=== PATIENT | male | born 1940 | race Caucasian/White ===

== ENCOUNTER 2016-09-28 14:15 | Outpatient (RCR) | payer OTHER, MEDICARE, MEDICAID ==
[~2016-09-28 14:15] MED LIST: ASPIRIN E.C. 8181 MG PO; CEFTIN500 MG PO; CLEOCIN HC150 MG/CAP PO; COLACE 100100 MG/CAP PO; DOLOBID500 MG PO; DOXYCYCLINE 10100 MG PO; FLOMAX 0.40.4 MG/CAP PO; GLUCOPHAGE XR500 M1 PO; IPRATROPIUM BROM3 M1 IH; K-DUR 10 MEQ T10 MEQ PO; LASIX 40MG TABL40 MG PO; LEVAQUIN 5500 MG/TA1 PO; LEXAPRO 10MG10 MG PO; LIPITOR 10MG10 MG PO; MIRALAX PA17 GM/Dose PO; MULTIPLE VITAMI1 CAP PO; MYRBETR50MG PO; NASAREL0.025 MG/1 NAS; NASAREL0.025 MG/1 NS; NORCO 325 MG-51 TAB PO; NYSTATIN100000 U/G TOP; OSCAL 500 TAB500 MG PO; PLAVIX 75MG TAB75 MG PO; PREDNISONE10 MG PO; SINEMET 25/101 UDTAB PO; SINEMET-25/251 UDTAB PO; TYLENOL 325MG325 MG PO; TYLENOL W/COD1 UDTAB PO; ZAROXOLYN5 MG PO; ZITHROMAX500 M2 PO; ZOLOFT 25MG25 MG PO; ZYRTEC 10MG10 MG PO
== END 2016-10-29 12:25 | disposition home or self-care (01) ==
LOC: WSPT 14:15
DX: I87.8 Other specified disorders of veins (principal); M79.89 Other specified soft tissue disorders
CPT/HCPCS: G8981-GP; G8982-GP; G8983-GP

== ENCOUNTER → 2016-10-03 | Outpatient (CLI) | payer MEDICARE, OTHER, MEDICAID | LOC: WCC 10:30 | DX: L03.115 Cellulitis of right lower limb (principal); L03.116 Cellulitis of left lower limb; I87.8 Other specified disorders of veins | CPT/HCPCS: 13919; 13973; 27517; A6199; A6207; G0463 ==

== ENCOUNTER → 2016-10-10 | Outpatient (CLI) | payer MEDICARE, OTHER, MEDICAID | LOC: WCC 10-09 15:32 | DX: I87.8 Other specified disorders of veins (principal); L97.919 Non-pressure chronic ulcer of unspecified part of right lower leg with unspecified severity; L97.929 Non-pressure chronic ulcer of unspecified part of left lower leg with unspecified severity; E66.01 Morbid (severe) obesity due to excess calories | CPT/HCPCS: 13919; 18806; A6197; G0463 ==

== ENCOUNTER → 2016-10-12 | Outpatient (CLI) | payer MEDICARE, OTHER, MEDICAID ==
[2016-10-12 23:13] LABS: CALCIUM 9.2 mg/dL (8.4-10.2); CREATININE, serum 0.92 mg/dL (0.66-1.25); POTASSIUM 4.7 mmol/L (3.4-5.0)
== END ==
LOC: EDSTATUS 14:40 → ZLAB.STJ 23:01
PROVIDERS: Internal Medicine
DX: Z01.89 Encounter for other specified special examinations (principal)

== ENCOUNTER → 2016-10-17 | Outpatient (CLI) | payer MEDICARE, OTHER, MEDICAID | LOC: WCC 09:23 | DX: I87.8 Other specified disorders of veins (principal); L97.529 Non-pressure chronic ulcer of other part of left foot with unspecified severity; L97.519 Non-pressure chronic ulcer of other part of right foot with unspecified severity; E66.01 Morbid (severe) obesity due to excess calories | CPT/HCPCS: 27510; A6197; G0463 ==

== ENCOUNTER → 2016-10-24 | Outpatient (CLI) | payer MEDICARE, OTHER, MEDICAID | LOC: WCC 08:32 | DX: R60.9 Edema, unspecified (principal); B37.2 Candidiasis of skin and nail; I87.8 Other specified disorders of veins | CPT/HCPCS: 27510; A6197; G0463 ==

== ENCOUNTER → 2016-10-24 | Outpatient (CLI) | payer MEDICARE, OTHER, MEDICAID ==
[2016-10-24 14:56] LABS: CALCIUM 9.3 mg/dL (8.4-10.2); CREATININE, serum 0.93 mg/dL (0.66-1.25); POTASSIUM 4.9 mmol/L (3.4-5.0)
== END ==
LOC: ZLAB.STJ 13:56 → EDSTATUS 14:47
PROVIDERS: Internal Medicine
DX: Z01.89 Encounter for other specified special examinations (principal)

== ENCOUNTER → 2016-10-31 | Outpatient (CLI) | payer MEDICARE, OTHER, MEDICAID | LOC: WCC 09:55 | DX: I87.8 Other specified disorders of veins (principal); R60.0 Localized edema; B37.2 Candidiasis of skin and nail | CPT/HCPCS: G0463 ==

== ENCOUNTER 2016-12-14 23:09 | Emergency (ER) | payer MEDICARE, OTHER, MEDICAID ==
[~2016-12-14] VITALS: Ht 180.3 cm; Wt 113.6 kg
[2016-12-14 23:11] VITALS: TEMP 98.6
[2016-12-15 02:15] VITALS: BP 148/90; PULSE 80
== END 2016-12-15 02:00 | disposition home or self-care (01) ==
LOC: COL.ER 23:09
DX: M23.8X1 Other internal derangements of right knee (principal); M25.061 Hemarthrosis, right knee; W01.198A Fall on same level from slipping, tripping and stumbling with subsequent striking against other object, initial encounter
CPT/HCPCS: J1885

== ENCOUNTER → 2016-12-31 | Outpatient (CLI) | payer MEDICARE, OTHER, MEDICAID ==
[2016-12-31 11:59] LABS: CALCIUM 9.1 mg/dL (8.4-10.2); CREATININE, serum 0.84 mg/dL (0.66-1.25); POTASSIUM 4.7 mmol/L (3.4-5.0)
== END ==
LOC: ZLAB.STJ 10:13
PROVIDERS: Family Medicine
DX: I10 Essential (primary) hypertension (principal)

== ENCOUNTER → 2017-01-30 | Outpatient (CLI) | payer MEDICARE, OTHER, MEDICAID | LOC: ZLAB.STJ 10:30 → ZCOL.LAB 10:30 | DX: E11.9 Type 2 diabetes mellitus without complications (principal); Z02.89 Encounter for other administrative examinations ==

== ENCOUNTER → 2017-02-28 | Outpatient (CLI) | payer MEDICARE, OTHER, MEDICAID ==
[2017-02-28 14:12] LABS: BASO # 0.1 (0.0-0.2); BASO % 0.6 % (0.0-2.0); EOS # 0.6 (0.0-0.7); EOS % 8.1 % (0-4.0); GRAN # 4.6 (1.4-6.5); GRAN % 59.2 % (42.2-75.2); HEMOGLOBIN 13.6 g/dl (13.5-18.0); LYMPH # 1.9 (1.2-3.4); LYMPH % 24.4 % (20.0-51.0); MEAN CELL VOLUME 94 fl (80.0-100.0); MEAN CORPUSCULAR HEMOGLOBIN 30 pg (27.0-31.0); MEAN CORPUSCULAR HGB CONC 32 g/dl (33.0-37.0); MEAN PLATELET VOLUME 10.7 fl (7.4-10.4); MONO # 0.6 (0.1-0.6); MONO % 7.2 % (1.7-9.3); PLATELET COUNT 166 K/mm3 (130-400); RED BLOOD COUNT 4.49 M/mm3 (4.20-5.60); REDCELL DISTRIBUTION WIDTH-CV 13.7 % (11.5-14.5); WHITE BLOOD COUNT 7.8 K/mm3 (4.8-10.8)
== END ==
LOC: ZLAB.STJ 13:26
PROVIDERS: Nurse Practitioner
DX: E11.9 Type 2 diabetes mellitus without complications (principal); D64.9 Anemia, unspecified

== ENCOUNTER → 2017-03-06 | Outpatient (CLI) | payer MEDICARE, OTHER, MEDICAID ==
[2017-03-06 13:06] LABS: CALCIUM 8.9 mg/dL (8.4-10.2); POTASSIUM 4.8 mmol/L (3.4-5.0)
== END ==
LOC: ZLAB.STJ 11:30
PROVIDERS: Family Medicine
DX: M62.81 Muscle weakness (generalized) (principal)

== ENCOUNTER → 2017-08-15 | Outpatient (CLI) | payer MEDICARE, OTHER, MEDICAID ==
[2017-08-15 10:02] LABS: BASO % 0.5 % (0.0-2.0); EOS # 0.7 (0.0-0.7); EOS % 8.5 % (0-4.0); GRAN # 4.8 (1.4-6.5); GRAN % 61.7 % (42.2-75.2); HEMOGLOBIN 13.5 g/dl (13.5-18.0); LYMPH # 1.7 (1.2-3.4); LYMPH % 21.4 % (20.0-51.0); MEAN CELL VOLUME 96 fl (80.0-100.0); MEAN CORPUSCULAR HEMOGLOBIN 32 pg (27.0-31.0); MEAN CORPUSCULAR HGB CONC 33 g/dl (33.0-37.0); MEAN PLATELET VOLUME 10.8 fl (7.4-10.4); MONO # 0.6 (0.1-0.6); MONO % 7.4 % (1.7-9.3); PLATELET COUNT 156 K/mm3 (130-400); RED BLOOD COUNT 4.29 M/mm3 (4.20-5.60); WHITE BLOOD COUNT 7.7 K/mm3 (4.8-10.8)
[2017-08-15 10:05] LABS: ALBUMIN 3.7 gm/dL (3.5-5.0); BILIRUBIN,TOTAL 0.6 mg/dL (0.0-1.0); CALCIUM 8.8 mg/dL (8.4-10.2); CHOLESTEROL RISK RATIO 4.1; CREATININE, serum 0.92 mg/dL (0.66-1.25); POTASSIUM 4.8 mmol/L (3.4-5.0); TOTAL PROTEIN 6.2 gm/dL (6.4-8.2)
== END ==
LOC: ZLAB.STJ 09:44
PROVIDERS: Internal Medicine
DX: E11.9 Type 2 diabetes mellitus without complications (principal); E78.5 Hyperlipidemia, unspecified; E87.8 Other disorders of electrolyte and fluid balance, not elsewhere classified

== ENCOUNTER → 2017-12-06 | Outpatient (CLI) | payer MEDICARE, OTHER, MEDICAID ==
[2017-12-06 10:51] LABS: CALCIUM 8.8 mg/dL (8.4-10.2); CREATININE, serum 0.98 mg/dL (0.66-1.25); POTASSIUM 4.4 mmol/L (3.4-5.0)
== END ==
LOC: ZLAB.STJ 10:30
PROVIDERS: Internal Medicine
DX: I10 Essential (primary) hypertension (principal)

== ENCOUNTER → 2018-03-11 | Outpatient (REF) ==
[2018-03-11 14:25] LABS: CALCIUM 8.8 mg/dL (8.4-10.2)
[2018-03-11 14:37] LABS: POTASSIUM 5.8 mmol/L (3.4-5.0)
== END ==
LOC: ZLAB.STJ 14:03
PROVIDERS: Internal Medicine
DX: I10 Essential (primary) hypertension (principal)

== ENCOUNTER → 2018-06-05 | Outpatient (CLI) | payer MEDICARE, OTHER, MEDICAID | LOC: ZLAB.STJ 14:17 | DX: Z01.89 Encounter for other specified special examinations (principal) ==

== ENCOUNTER → 2018-06-05 | Outpatient (CLI) | payer MEDICARE, OTHER, MEDICAID ==
[2018-06-05 15:35] LABS: CALCIUM 8.7 mg/dL (8.4-10.2); CREATININE, serum 0.98 mg/dL (0.66-1.25); POTASSIUM 5.7 mmol/L (3.4-5.0)
== END ==
LOC: ZLAB.STJ 15:20
PROVIDERS: Internal Medicine
DX: I10 Essential (primary) hypertension (principal)

== ENCOUNTER → 2018-06-24 | Outpatient (REF) | LOC: ZLAB.STJ 13:55 | DX: E87.5 Hyperkalemia (principal) ==

== ENCOUNTER → 2018-08-06 | Outpatient (CLI) | payer MEDICARE, OTHER, MEDICAID | LOC: ZLAB.STJ 10:04 | DX: E87.8 Other disorders of electrolyte and fluid balance, not elsewhere classified (principal) ==

== ENCOUNTER → 2018-08-27 | Outpatient (CLI) | payer MEDICARE, OTHER, MEDICAID ==
[2018-08-27 12:44] LABS: ALBUMIN 3.4 gm/dL (3.5-5.0); BILIRUBIN,TOTAL 0.5 mg/dL (0.0-1.0); CALCIUM 8.7 mg/dL (8.4-10.2); CHOLESTEROL RISK RATIO 3.8; CREATININE, serum 0.85 mg/dL (0.66-1.25); POTASSIUM 4.4 mmol/L (3.4-5.0); TOTAL PROTEIN 6.2 gm/dL (6.4-8.2)
== END ==
LOC: ZLAB.STJ 11:26
PROVIDERS: Internal Medicine
DX: E11.9 Type 2 diabetes mellitus without complications (principal); E78.5 Hyperlipidemia, unspecified; I10 Essential (primary) hypertension

== ENCOUNTER → 2018-09-04 | Outpatient (CLI) | payer MEDICARE, OTHER, MEDICAID ==
[2018-09-04 15:06] LABS: CREATININE, serum 0.82 mg/dL (0.66-1.25); POTASSIUM 4.3 mmol/L (3.4-5.0)
== END ==
LOC: ZLAB.STJ 14:25
PROVIDERS: Internal Medicine
DX: R79.89 Other specified abnormal findings of blood chemistry (principal)

== ENCOUNTER → 2018-11-11 | Outpatient (CLI) | payer MEDICARE, OTHER, MEDICAID | LOC: COL.RAD 10:42 | DX: K56.699 Other intestinal obstruction unspecified as to partial versus complete obstruction (principal); K63.89 Other specified diseases of intestine; Z96.641 Presence of right artificial hip joint ==

== ENCOUNTER → 2018-12-03 | Outpatient (CLI) | payer MEDICARE, OTHER, MEDICAID ==
[2018-12-03 16:36] LABS: CALCIUM 8.9 mg/dL (8.4-10.2); CREATININE, serum 0.95 mg/dL (0.66-1.25); POTASSIUM 4.6 mmol/L (3.4-5.0)
== END ==
LOC: ZLAB.STJ 15:09
PROVIDERS: Internal Medicine
DX: I10 Essential (primary) hypertension (principal)

== ENCOUNTER → 2019-02-20 | Outpatient (CLI) | payer MEDICARE, OTHER, MEDICAID | LOC: ZLAB.STJ 10:24 | DX: E11.9 Type 2 diabetes mellitus without complications (principal) ==

== ENCOUNTER → 2019-03-06 | Outpatient (CLI) | payer MEDICARE, OTHER, MEDICAID ==
[2019-03-06 14:16] LABS: CREATININE, serum 0.91 (0.66-1.25); POTASSIUM 5.1 mmol/L (3.4-5.0)
== END ==
LOC: ZLAB.STJ 11:13
PROVIDERS: Nurse Practitioner
DX: I10 Essential (primary) hypertension (principal)

== ENCOUNTER → 2019-05-20 | Outpatient (CLI) | payer MEDICARE, OTHER, MEDICAID ==
[2019-05-20 10:55] LABS: COLLECTION METHOD CLEAN CATCH
[2019-05-20 11:19] LABS: MUCOUS Present /lpf; PH 6 (5-8); SQUAMOUS EPITHELIAL 0-2 /hpf; URINE APPEARANCE Clear; URINE BACTERIA Rare /hpf; URINE BILIRUBIN Negative (NEGATIVE); URINE BLOOD Negative (NEGATIVE); URINE COLOR Yellow; URINE GLUCOSE Negative (NEGATIVE); URINE KETONE Trace (NEGATIVE); URINE LEUKOCYTE ESTERASE Negative (NEGATIVE); URINE NITRATE Negative (NEGATIVE); URINE PROTEIN(semi-quant) Negative (NEGATIVE); URINE RBC 0-2 /hpf; URINE UROBILINOGEN Negative (NEGATIVE)
== END ==
LOC: ZLAB.STJ 10:15
PROVIDERS: Nurse Practitioner
DX: N32.81 Overactive bladder (principal); R41.0 Disorientation, unspecified

== ENCOUNTER 2019-06-22 15:42 | Emergency (ER) | payer MEDICARE, OTHER, MEDICAID ==
[2019-06-22 16:30] VITALS: TEMP 97.5
[2019-06-22 17:12] LABS: BASO % 0.4 % (0.0-2.0); EOS # 0.4 (0.0-0.7); GRAN # 7.7 (1.4-6.5); GRAN % 74.2 % (42.2-75.2); HEMATOCRIT 43.9 % (42.0-52.0); HEMOGLOBIN 14.1 g/dl (13.5-18.0); LYMPH # 1.4 (1.2-3.4); LYMPH % 13.1 % (20.0-51.0); MEAN CELL VOLUME 95 fl (80.0-100.0); MEAN CORPUSCULAR HEMOGLOBIN 30 pg (27.0-31.0); MEAN CORPUSCULAR HGB CONC 32 g/dl (33.0-37.0); MEAN PLATELET VOLUME 9.5 fl (7.4-10.4); MONO # 0.8 (0.1-0.6); MONO % 7.5 % (1.7-9.3); PLATELET COUNT 249 K/mm3 (130-400); RED BLOOD COUNT 4.64 M/mm3 (4.20-5.60); REDCELL DISTRIBUTION WIDTH-CV 13.4 % (11.5-14.5)
[2019-06-22 17:25] LABS: PROTHROMBIN TIME 12.1 SECONDS (9.7-12.8)
[2019-06-22 17:36] LABS: ALANINE AMINOTRANSFERASE 9 U/L (21-72); ALBUMIN 3.7 gm/dL (3.5-5.0); ALKALINE PHOSPHATASE 86 U/L (50-136); ANION GAP 8 mmol/L (7-16); AST,SGOT 45 U/L (15-37); BILIRUBIN,TOTAL 0.6 mg/dL (0.0-1.0); BLOOD UREA NITROGEN 10 mg/dL (9-20); CALCIUM 8.8 mg/dL (8.4-10.2); CARBON DIOXIDE 33 mmol/L (22-30); CHLORIDE 98 mmol/L (98-107); GLUCOSE 115 mg/dL (74-106); POTASSIUM 4.1 mmol/L (3.4-5.0); SODIUM 138 mmol/L (137-145); TOTAL PROTEIN 7.3 gm/dL (6.4-8.2)
[2019-06-22 17:51] LABS: TROPONIN-I < 0.012 ng/mL (0.000-0.035)
[2019-06-22 18:24] LABS: COLLECTION METHOD CATHETER
[2019-06-22 18:40] LABS: MUCOUS Present /lpf; PH 6 (5-8); SQUAMOUS EPITHELIAL 0-2 /hpf; URINE APPEARANCE Turbid; URINE BACTERIA Moderate /hpf; URINE BILIRUBIN Negative (NEGATIVE); URINE BLOOD 2+ (NEGATIVE); URINE COLOR Amber; URINE GLUCOSE Negative (NEGATIVE); URINE KETONE Trace (NEGATIVE); URINE LEUKOCYTE ESTERASE 2+ (NEGATIVE); URINE NITRATE Negative (NEGATIVE); URINE PROTEIN(semi-quant) 2+ (NEGATIVE); URINE RBC >50 /hpf
[2019-06-22] MEDS ORDERED: OMNICEF 300MG300 MG PO (18:57)
[2019-06-22 19:15] VITALS: BP 121/70; PULSE 67
== END 2019-06-22 21:35 | disposition home or self-care (01) ==
LOC: COL.ER 15:42
PROVIDERS: Emergency Medicine
DX: S82.891A Other fracture of right lower leg, initial encounter for closed fracture (principal); N39.0 Urinary tract infection, site not specified; E11.9 Type 2 diabetes mellitus without complications; I10 Essential (primary) hypertension; E78.5 Hyperlipidemia, unspecified; G30.9 Alzheimer's disease, unspecified; F02.80 Dementia in other diseases classified elsewhere, unspecified severity, without behavioral disturbance, psychotic disturbance, mood disturbance, and anxiety; Z79.02 Long term (current) use of antithrombotics/antiplatelets; W01.0XXA Fall on same level from slipping, tripping and stumbling without subsequent striking against object, initial encounter; Y92.129 Unspecified place in nursing home as the place of occurrence of the external cause
CPT/HCPCS: A4216; J0696; J7040